=== PATIENT | male | born 1940 | race Caucasian/White ===

== ENCOUNTER 2018-01-01 13:34 | Inpatient (IN) | payer BC, MEDICARE ==
[2018-01-01 13:38] LABS: Glucose,Whole Blood 91 mg/dL (75-99)
[2018-01-01] MEDS ORDERED: SODIUM CHLORIDE 0.9% 500 ML IV STA (13:51)
--- NOTE | 2018-01-01 13:57 | ED ---
General Adult HPI - General Stated complaint: Confusion Time Seen by Provider: 01/01/18 13:35 Source: RN notes reviewed - History of Present Illness Initial comments: This is a 77-year-old male who presents emergency Department complaining of being forgetful for a period of about a half an hour. Patient states she was unable to remember any of his children's names. Patient states about a month ago he had the same kind of episode occurred he was unable to remember his ' s name for about a half an hour. Patient states currently her breathing is back to normal he can read brought his kids names and his 's name. Patient denies any recent fever chills or cough. Patient denies headache patient denies any numbness or weakness. Patient denies any visual disturbance. Patient denies any speech disturbance. Patient denies any chest pain palpitations difficulty breathing shortness of breath. Patient denies any recent fever chills or cough. Patient denies abdominal pain patient denies nausea vomiting diarrhea. Currently patient states he has no symptoms whatsoever. - Related Data Home Medications Medication Instructions Recorded Confirmed Doxycycline Hyclate [Vibramycin] 100 mg PO BID 05/10/16 01/01/18 Metoprolol Tartrate [Lopressor] 25 mg PO BID 05/10/16 01/01/18 Omeprazole 20 mg PO HS PRN 05/10/16 01/01/18 Ramipril [Altace] 10 mg PO 1300 05/10/16 01/01/18 glipiZIDE [Glucotrol XL] 10 mg PO DAILY 05/10/16 01/01/18 metFORMIN HCL [Glucophage] 500 mg PO QID 05/10/16 01/01/18 Aspirin [Adult Low Dose Aspirin EC] 81 mg PO DAILY 05/11/16 01/01/18 Rosuvastatin Calcium [Rosuvastatin 5 mg PO DAILY 01/01/18 01/01/18 Calcium] Allergies Allergy/AdvReac Type Severity Reaction Status Date / Time No Known Allergies Allergy Verified 01/01/18 13:59 Review of Systems ROS Statement: Those systems with pertinent positive or pertinent negative responses have been documented in the HPI. ROS Other: All systems not noted in ROS Statement are negative. Past Medical History Past Medical History: Cancer, Diabetes Mellitus, GERD/Reflux, Hyperlipidemia, Hypertension, Myocardial Infarction (PR), Prostate Disorder Additional Past Medical History / Comment(s): PROSTATE Last Myocardial Infarction Date:: 2000 History of Any Multi-Drug Resistant Organisms: None Reported Past Surgical History: Prostate Surgery Additional Past Surgical History / Comment(s): COLONOSCOPY Past Anesthesia/Blood Transfusion Reactions: No Reported Reaction Smoking Status: Former smoker - Past Family History Father Family Medical History: Cancer Brother(s) Family Medical History: Cancer Additional Family Medical History / Comment(s): PROSTATE CANCER General Exam - General Exam Comments Initial Comments: GENERAL: Patient is well-developed and well-nourished. Patient is nontoxic and well- hydrated and is in no acute distress. ENT: Neck is soft and supple. No significant lymphadenopathy is noted. Oropharynx is clear. Moist mucous membranes. Neck has full range of motion without eliciting any pain. EYES: The sclera were anicteric and conjunctiva were pink and moist. Extraocular movements were intact and pupils were equal round and reactive to light. Eyelids were unremarkable. PULMONARY: Unlabored respirations. Good breath sounds bilaterally. No audible rales rhonchi or wheezing was noted. CARDIOVASCULAR: There is a regular rate and rhythm without any murmurs gallops or rubs. ABDOMEN: Soft and nontender with normal bowel sounds. No palpable organomegaly was noted. There is no palpable pulsatile mass. SKIN: Skin is clear with no lesions or rashes and otherwise unremarkable. NEUROLOGIC: Patient is alert and oriented x3. Cranial nerves II through XII are grossly intact. Motor and sensory are also intact. Normal speech, volume and content. Symmetrical smile. MUSCULOSKELETAL: Normal extremities with adequate strength and full range of motion. No lower extremity swelling or edema. No calf tenderness. LYMPHATICS: No significant lymphadenopathy is noted PSYCHIATRIC: Normal psychiatric evaluation. Normal interpersonal interactions appears functionally intact in deals appropriately with others. No signs of depression. No signs of anxiety. Course Vital Signs 01/01/18 01/01/18 01/01/18 13:49 14:22 14:47 Temperature 98.6 F Pulse Rate 84 81 77 Respiratory 18 18 18 Rate Blood Pressure 163/75 155/97 140/68 O2 Sat by Pulse 100 100 100 Oximetry Medical Decision Making - Medical Decision Making EKG shows a sinus rhythm at 85 bpm [place] interval is 216 QRS is 138 QT interval 410 QTC is 487. Patient's EKG shows no ST segment elevation or depression. CT of the brain shows no acute abnormalities. Chest x-ray shows no acute normalities. Patient is been a symptomatically through his ED stay. I spoke with Dr. Mejía he agreed to admit the patient admitted the patient I consult to neurology. - Lab Data Result diagrams: 01/01/18 14:07 01/01/18 14:07 Lab Results 01/01/18 01/01/18 01/01/18 Range/Units 13:36 14:07 14:07 WBC 9.1 (3.8-10.6) k/uL RBC 4.91 (4.30-5.90) m/uL Hgb 14.5 (13.0-17.5) gm/dL Hct 40.7 (39.0-53.0) % MCV 83.1 (80.0-100.0) fL MCH 29.7 (25.0-35.0) pg MCHC 35.7 (31.0-37.0) g/dL RDW 13.2 (11.5-15.5) % Plt Count 225 (150-450) k/uL Neutrophils % 60 % Lymphocytes % 28 % Monocytes % 5 % Eosinophils % 4 % Basophils % 0 % Neutrophils # 5.4 (1.3-7.7) k/uL Lymphocytes # 2.6 (1.0-4.8) k/uL Monocytes # 0.4 (0-1.0) k/uL Eosinophils # 0.3 (0-0.7) k/uL Basophils # 0.0 (0-0.2) k/uL PT (9.0-12.0) sec INR (<1.2) APTT (22.0-30.0) sec Sodium (137-145) mmol/L Potassium (3.5-5.1) mmol/L Chloride (98-107) mmol/L Carbon Dioxide (22-30) mmol/L Anion Gap mmol/L BUN (9-20) mg/dL Creatinine (0.66-1.25) mg/dL Est GFR (CKD-EPI)AfAm (>60 ml/min/1.73 sqM) Est GFR (CKD-EPI)NonAf (>60 ml/min/1.73 sqM) Glucose (74-99) mg/dL POC Glucose (mg/dL) 91 (75-99) mg/dL POC Glu Executive Officer ID Sujatha Winslow Calcium (8.4-10.2) mg/dL Total Bilirubin (0.2-1.3) mg/dL AST (17-59) U/L ALT (21-72) U/L Alkaline Phosphatase (38-126) U/L Total Creatine Kinase 146 (55-170) U/L CK-MB (CK-2) 4.3 H* (0.0-2.4) ng/mL CK-MB (CK-2) Rel Index 2.9 Troponin I <0.012 (0.000-0.034) ng/mL Total Protein (6.3-8.2) g/dL Albumin (3.5-5.0) g/dL 01/01/18 01/01/18 Range/Units 14:07 14:07 WBC (3.8-10.6) k/uL RBC (4.30-5.90) m/uL Hgb (13.0-17.5) gm/dL Hct (39.0-53.0) % MCV (80.0-100.0) fL MCH (25.0-35.0) pg MCHC (31.0-37.0) g/dL RDW (11.5-15.5) % Plt Count (150-450) k/uL Neutrophils % % Lymphocytes % % Monocytes % % Eosinophils % % Basophils % % Neutrophils # (1.3-7.7) k/uL Lymphocytes # (1.0-4.8) k/uL Monocytes # (0-1.0) k/uL Eosinophils # (0-0.7) k/uL Basophils # (0-0.2) k/uL PT 11.5 (9.0-12.0) sec INR 1.2 H (<1.2) APTT 23.1 (22.0-30.0) sec Sodium 144 (137-145) mmol/L Potassium 4.5 (3.5-5.1) mmol/L Chloride 107 (98-107) mmol/L Carbon Dioxide 25 (22-30) mmol/L Anion Gap 12 mmol/L BUN 17 (9-20) mg/dL Creatinine 0.93 (0.66-1.25) mg/dL Est GFR (CKD-EPI)AfAm >90 (>60 ml/min/1.73 sqM) Est GFR (CKD-EPI)NonAf 79 (>60 ml/min/1.73 sqM) Glucose 92 (74-99) mg/dL POC Glucose (mg/dL) (75-99) mg/dL POC Glu Executive Officer ID Calcium 9.3 (8.4-10.2) mg/dL Total Bilirubin 0.5 (0.2-1.3) mg/dL AST 32 (17-59) U/L ALT 42 (21-72) U/L Alkaline Phosphatase 90 (38-126) U/L Total Creatine Kinase (55-170) U/L CK-MB (CK-2) (0.0-2.4) ng/mL CK-MB (CK-2) Rel Index Troponin I (0.000-0.034) ng/mL Total Protein 6.2 L (6.3-8.2) g/dL Albumin 3.8 (3.5-5.0) g/dL Disposition Clinical Impression: TIA (transient ischemic attack) Disposition: ADMITTED IP TO THIS HOSP Referrals: Arturo Booth DO [Primary Care Provider] - 1-2 days Time of Disposition: 15:07
[2018-01-01 14:22] LABS: Basophils % (A) 0 %; Eosinophils # (A) 0.3 k/uL (0-0.7); Eosinophils % (A) 4 %; HCT 40.7 % (39.0-53.0); HGB 14.5 gm/dL (13.0-17.5); Lymphocytes # (A) 2.6 k/uL (1.0-4.8); Lymphocytes % (A) 28 %; MCH 29.7 pg (25.0-35.0); MCHC 35.7 g/dL (31.0-37.0); MCV 83.1 fL (80.0-100.0); Mean Platelet Volume 7.4; Monocytes # (A) 0.4 k/uL (0-1.0); Monocytes % (A) 5 %; Neutrophils # (A) 5.4 k/uL (1.3-7.7); Neutrophils % (A) 60 %; Platelet Count 225 k/uL (150-450); RBC 4.91 m/uL (4.30-5.90); RDW 13.2 % (11.5-15.5); WBC 9.1 k/uL (3.8-10.6)
[2018-01-01 14:25] LABS: ALT 42 U/L (21-72); AST 32 U/L (17-59); Albumin 3.8 g/dL (3.5-5.0); Alkaline Phosphatase 90 U/L (38-126); Anion Gap 12 mmol/L; Blood Urea Nitrogen 17 mg/dL (9-20); Calcium 9.3 mg/dL (8.4-10.2); Carbon Dioxide 25 mmol/L (22-30); Chloride 107 mmol/L (98-107); Glucose 92 mg/dL (74-99); Potassium 4.5 mmol/L (3.5-5.1); Sodium 144 mmol/L (137-145); Total Bilirubin 0.5 mg/dL (0.2-1.3); Total Protein 6.2 g/dL (6.3-8.2)
[2018-01-01 14:27] LABS: INR 1.2 (<1.2); Partial Thromboplastin Time 23.1 sec (22.0-30.0); Prothrombin Time 11.5 sec (9.0-12.0)
[2018-01-01 14:35] LABS: Creatine Kinase 146 U/L (55-170)
--- NOTE | 2018-01-01 14:47 | CT ---
EXAMINATION TYPE: CT brain wo con for TPA DATE OF EXAM: 01/01/2018 COMPARISON: NONE INDICATION: Multiple episodes of memory loss and confusion DLP: 1296 mGycm, Automated exposure control for dose reduction was used. CONTRAST: None CT of the brain is performed utilizing 3 mm thick sections through the posterior fossa and 3 mm thick sections through the remaining calvarium. Study is performed within 24 hours of arrival to the hosp [facility]. No abnormal hyperdensity is present to suggest an acute intracranial hemorrhage. No mass lesion is evident. No acute infarcts are evident. Mild periventricular white matter hypodensity is present, likely on th e basis of chronic white matter ischemic changes. Ventricles and sulci are appropriate for the patient age. Paranasal sinuses and mastoid air cells within the [id number] are clear. IMPRESSIONS: 1. No acute intracranial process. 2. Mild chronic appearing white matter ischemic changes.
[2018-01-01 14:48] LABS: Troponin I <0.012 ng/mL (0.000-0.034)
--- NOTE | 2018-01-01 14:48 | XR ---
EXAMINATION TYPE: XR chest 2V DATE OF EXAM: 01/01/2018 COMPARISON: NONE INDICATION: Altered mental status TECHNIQUE: Frontal and lateral views of the chest are obtained. FINDINGS: The heart size is normal. The pulmonary vasculature is normal. The lungs are clear. IMPRESSION: 1. No acute pulmonary process.
[2018-01-01 14:57] LABS: Creatine Kinase MB 4.3 ng/mL (0.0-2.4)
[2018-01-01] MEDS ORDERED: ASPIRIN 325 MG TAB PO STA (15:07)
[2018-01-01 18:13] LABS: Glucose,Whole Blood 99 mg/dL (75-99)
[2018-01-01 21:16] LABS: Glucose,Whole Blood 79 mg/dL (75-99)
[2018-01-01] MEDS: INSULIN ASPART 100 UNIT/ML 1 ML 10 ML VIAL SQ SCH (21:40)
[2018-01-01] MEDS ORDERED: PANTOPRAZOLE 40 MG TABLET PO PRN (23:39)
--- NOTE | 2018-01-01 23:48 | P.HPIM ---
History of Present Illness H&P Date: 01/01/18 Chief Complaint: Loss of memory Patient is a 77-year-old male with a known history of hypertension, hyperlipidemia, diabetes type 2 and history of ME and no PCI came to ER with the complaints of being forgetful for a period of about 20-30 minutes. Patient was unable to work his children's names. Patient states about a month ago he had the same kind of episode occurred he was unable to remember his 's name for about a half an hour. Patient states currently her breathing is back to normal he can read brought his kids names and his 's name. Patient was previously seen by Dr. Glover. Patient says that he had 2-D echocardiogram and ultrasound of the neck was done previously about near ago. Patient denies any recent fever chills or cough. Patient denies headache patient denies any numbness or weakness. Patient denies any visual disturbance. Patient denies any speech disturbance. Patient denies any chest pain palpitations difficulty breathing shortness of breath. Patient denies any recent fever chills or cough. Patient denies abdominal pain patient denies nausea vomiting diarrhea. Currently patient states he has no symptoms. Patient is originally from [place] and is currently in [place]. Apparently patient has been cleaning up garage and has been working continuously. Patient says that at one time she forgot how to start his tractor. CT head showed no acute process Chest x-ray showed no acute cardiopulmonary process EKG showed sinus rhythm with first degree AV block Review of Systems Constitutional: Patient denies any fever or chills . No generalized weakness or weight loss. Abdomen: Patient denied nausea vomiting and diarrhea and abdominal pain. Cardiovascular: Patient denies any chest pain or short of breath no palpitations. Respiratory: patient denied any cough is from production. No shortness of breath Neurologic: Patient denied any numbness or tingling headache. Musculoskeletal: Patient denies any complaints of joint swelling or deformity. Skin: Negative Psychiatric: Negative Endocrine: No heat or cold intolerance. No recent weight gain. Genitourinary: No dysuria or hematuria. All other 14 point ROS negative except the above Past Medical History Past Medical History: Cancer, Diabetes Mellitus, GERD/Reflux, Hyperlipidemia, Hypertension, Myocardial Infarction (ME), Prostate Disorder Additional Past Medical History / Comment(s): PROSTATE Last Myocardial Infarction Date:: 2000 History of Any Multi-Drug Resistant Organisms: None Reported Past Surgical History: Prostate Surgery Additional Past Surgical History / Comment(s): COLONOSCOPY Past Anesthesia/Blood Transfusion Reactions: No Reported Reaction Smoking Status: Former smoker - Past Family History Father Family Medical History: Cancer Brother(s) Family Medical History: Cancer Additional Family Medical History / Comment(s): PROSTATE CANCER Medications and Allergies Home Medications Medication Instructions Recorded Confirmed Type Doxycycline Hyclate [Vibramycin] 100 mg PO BID 05/10/16 01/01/18 History Omeprazole 20 mg PO HS PRN 05/10/16 01/01/18 History Ramipril [Altace] 10 mg PO DAILY 05/10/16 01/01/18 History glipiZIDE [Glucotrol XL] 10 mg PO DAILY 05/10/16 01/01/18 History metFORMIN HCL [Glucophage] 500 mg PO TID 05/10/16 01/01/18 History Aspirin [Adult Low Dose Aspirin EC] 81 mg PO DAILY 05/11/16 01/01/18 History Metoprolol Tartrate [Lopressor] 25 mg PO BID 01/01/18 01/01/18 History Rosuvastatin Calcium [Rosuvastatin 5 mg PO DAILY@1300 01/01/18 01/01/18 History Calcium] Allergies Allergy/AdvReac Type Severity Reaction Status Date / Time No Known Allergies Allergy Verified 01/01/18 15:36 Physical Exam Vitals: Vital Signs Temp Pulse Pulse Resp BP BP Pulse Ox 01/01/18 16:07 67 18 166/75 100 01/01/18 15:07 97.9 F 67 18 180/71 100 01/01/18 14:40 77 18 140/68 100 01/01/18 14:22 81 18 155/97 100 01/01/18 13:49 98.6 F 84 18 163/75 100 Intake and Output 01/01/18 01/01/18 01/01/18 06:59 14:59 22:59 Other: Weight 95.254 kg PHYSICAL EXAMINATION: Patient is lying in the bed comfortably, no acute distress, awake alert and oriented.. HEENT: Normocephalic. Neck is supple. Pupils reactive. Nostrils clear. Oral cavity is moist. Ears reveal no drainage. Neck reveals no JVD, carotid bruits, or thyromegaly. CHEST EXAMINATION: Trachea is central. Symmetrical expansion. Lung mccann clear to auscultation and percussion. CARDIAC: Normal S1, S2 with no gallops. No murmurs ABDOMEN: Soft. Bowel sounds normal. No organomegaly. No abdominal bruits. Extremities: reveal no edema. No clubbing or cyanosis Neurologically awake, alert, oriented x3 with well-coordinated movements. No focal deficits noted Skin: No rash or skin lesions. Psychiatric: Coperative. Nonsuicidal Musculoskeletal: No joint swelling or deformity. Normal range of motion. Results CBC & Chem 7: 01/01/18 14:07 01/01/18 14:07 Labs: Abnormal Lab Results - Last 24 Hours (Table) 01/01/18 01/01/18 01/01/18 Range/Units 14: 14: 14: INR 1.2 H (<1.2) CK-MB (CK-2) 4.3 H* (0.0-2.4) ng/mL Total Protein 6.2 L (6.3-8.2) g/dL Thrombosis Risk Factor Assmnt - DVT/VTE Prophylaxis DVT/VTE Prophylaxis: Pharmacologic Prophylaxis ordered Assessment and Plan Assessment: Transient amnesia. Possible TIA. CT head negative. Rule out seizures. Resolved now Hypertension uncontrolled Hyperlipidemia Previous history of ME. No PCI Diabetes type 2 [id number] History of prostate cancer status post resection Colonoscopy with benign polyp removal Moderate diverticulosis DVT prophylaxis Plan: Patient will be continued on telemetry monitoring. Neurology was consulted. Continue with aspirin and will restart on his home blood pressure medications and adjust as needed. 2-D echocardiogram and carotid duplex was ordered. Insulin sliding scale and follow closely. Further recommendations based on the clinical course. Time with Patient: Greater than 30
[2018-01-02] MEDS: HEPARIN SODIUM,PORCINE 5,000 UNIT/ML 1 ML VIAL SQ SCH ×3 (00:07→16:26)
[2018-01-02 03:17] LABS: Cholesterol 102 mg/dL (<200); HDL Cholesterol 28 mg/dL (40-60); LDL Cholesterol,Calculated 34 mg/dL (0-99); Triglycerides 201 mg/dL (<150)
[2018-01-02] MEDS: INSULIN ASPART 100 UNIT/ML 1 ML 10 ML VIAL SQ SCH ×2 (06:25→12:06)
[2018-01-02 06:26] LABS: Glucose,Whole Blood 119 mg/dL (75-99)
[2018-01-02] MEDS ORDERED: glipiZIDE 5 MG TAB PO SCH (07:30)
[2018-01-02 08:05] VITALS: RESP 16
[2018-01-02] MEDS: metFORMIN 500 MG TAB PO SCH ×2 (08:41→16:26)
[2018-01-02] MEDS ORDERED: METOPROLOL TARTRATE 25 MG TAB PO SCH (09:00)
[2018-01-02] MEDS ORDERED: LISINOPRIL 20 MG TAB PO SCH (09:00)
[2018-01-02] MEDS ORDERED: ASPIRIN 325 MG TAB PO SCH (09:00)
--- NOTE | 2018-01-02 09:03 | P.CNNES ---
History of Present Illness Consult date: 01/02/18 Reason for Consult: Patient with episode of memory loss and TIA. History of Present Illness: This patient is a 77-year-old right-handed white male who apparently just 2 days prior had returned from his stay in [place] with his . Normally he spends winter months in [place]. He had just returned from [place] 2 days ago and was outside working in his yard cleaning up some lawn and trim work. He is very active and apparently did not have any major problems until he went indoors for a short break. When inside he noticed that he was having difficulty remembering his 's name. Apparently a neighbor came over and he still had some degree of confusion and was unable to recollect the neighbor's name. He is known this neighbor for years. His noticed that he was having episodes of confusion which seem to wax and wane. She has some if he was having any chest pain or weakness. He denied both of these symptoms. He went out and cleaned his garage at the time and when he came back he continued to have episodes of worsening confusion. Apparently for 30 minutes he was totally confused and unaware of recent events. Apparently the patient states a year ago he had a similar event for which she was evaluated and was seen by Dr. Subramanian from cardiology. He was diagnosed as possibly of having had a small stroke at the time. Patient states he has been active and has not had any other recent problems even while in [place]. 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 Due to this 30 minute episode of confusion he was brought into the emergency room and the [facility] for further evaluation. He was seen in the ER by Dr. Moser. He was sent for a computed tomography scan of the brain which revealed no acute intracranial process. There was chronic white matter ischemic changes noted. He was admitted hospital for further evaluation. Patient states his entire episode of confusion and amnesia lasted only about 30 minutes. He is now back to his baseline according to his as well this morning. She was at bedside and states that she feels he is recovered nicely but is unaware of this episode that occurred yesterday as to what may have caused this finding. The patient has a history of previous myocardial infarction. He also has underlying diabetes2 and was concerned may be his blood sugars were either too high or too low at the time. EMS was called to the home and apparently when they arrived his blood sugars were within normal range. The patient states he is feeling much better this morning and has had no further recurrence of the confusion. His clinical history and his exam findings at this time suggest possibility of transient global amnesia. We've explained to him this is a form of TIA. He has been taking aspirin daily and should continue on the same for secondary stroke prevention. We have recommended a complete stroke evaluation for the patient. His overall prognosis remains fair. He is now been admitted and neurology has been consulted for further evaluation and recommendations. Review of Systems Constitutional: Denies chills, Denies fever Eyes: denies blurred vision, denies pain Ears, nose, mouth and throat: Denies headache, Denies sore throat Cardiovascular: Denies chest pain, Denies shortness of breath Respiratory: Denies cough Gastrointestinal: Denies abdominal pain, Denies diarrhea, Denies nausea, Denies vomiting Musculoskeletal: Denies myalgias Integumentary: Denies pruritus, Denies rash Neurological: Reports aphasia, Reports change in speech, Reports confusion, Denies numbness, Denies weakness Psychiatric: Denies anxiety, Denies depression Endocrine: Denies fatigue, Denies weight change Past Medical History Past Medical History: Cancer, Diabetes Mellitus, GERD/Reflux, Hyperlipidemia, Hypertension, Myocardial Infarction ([place]), Prostate Disorder Additional Past Medical History / Comment(s): PROSTATE Last Myocardial Infarction Date:: 2000 History of Any Multi-Drug Resistant Organisms: None Reported Past Surgical History: Prostate Surgery Additional Past Surgical History / Comment(s): COLONOSCOPY Past Anesthesia/Blood Transfusion Reactions: No Reported Reaction Smoking Status: Former smoker - Past Family History Father Family Medical History: Cancer Brother(s) Family Medical History: Cancer Additional Family Medical History / Comment(s): PROSTATE CANCER Medications and Allergies Home Medications Medication Instructions Recorded Confirmed Type Doxycycline Hyclate [Vibramycin] 100 mg PO BID 05/10/16 01/01/18 History Omeprazole 20 mg PO HS PRN 05/10/16 01/01/18 History Ramipril [Altace] 10 mg PO DAILY 05/10/16 01/01/18 History glipiZIDE [Glucotrol XL] 10 mg PO DAILY 05/10/16 01/01/18 History metFORMIN HCL [Glucophage] 500 mg PO TID 05/10/16 01/01/18 History Aspirin [Adult Low Dose Aspirin EC] 81 mg PO DAILY 05/11/16 01/01/18 History Metoprolol Tartrate [Lopressor] 25 mg PO BID 01/01/18 01/01/18 History Rosuvastatin Calcium [Rosuvastatin 5 mg PO DAILY@1300 01/01/18 01/01/18 History Calcium] Allergies Allergy/AdvReac Type Severity Reaction Status Date / Time No Known Allergies Allergy Verified 01/01/18 15:36 Physical Examination - Vital Signs Vital Signs: Vital Signs Temp Pulse Pulse Resp BP BP Pulse Ox 01/02/18 04:00 97.3 F L 70 18 156/74 96 01/02/18 00:00 97.1 F L 80 16 139/66 98 01/01/18 20:00 97.4 F L 66 19 149/67 97 01/01/18 18:15 97.3 F L 72 20 194/81 100 01/01/18 17:07 98 F 71 18 142/66 100 01/01/18 16:58 98 F 66 16 162/73 100 01/01/18 16:07 67 18 166/75 100 01/01/18 15:07 97.9 F 67 18 180/71 100 01/01/18 14:40 77 18 140/68 100 01/01/18 14:22 81 18 155/97 100 01/01/18 13:49 98.6 F 84 18 163/75 100 Intake and Output 01/01/18 01/02/18 01/02/18 22:59 06:59 14:59 Intake Total 240 300 Balance 240 300 Intake: Oral 240 300 Other: Voiding Method Toilet Toilet Urinal Urinal # Voids 1 1 Weight 94 kg - Constitutional General appearance: average body habitus, cooperative - EENT EENT: PERRL, mucous membranes moist - Respiratory Respiratory: lungs clear, normal breath sounds - Cardiovascular Cardiovascular: regular rate, normal S1, normal S2 Extremities: no peripheral edema bilaterally - Gastrointestinal Gastrointestinal: normoactive bowel sounds - Integumentary Integumentary: normal - Neurologic Cranial nerve examination: PERRL, EOMI, VFF, V1/V2/V3 grossly intact, face symmetric, intact gag reflex, intact corneal reflex, normal palatal elevation Speech examination: intact Sensorimotor examination: intact Motor examination - right side: 4/5: biceps, triceps, wrist flexion, wrist extension, relationship assoc, hip flexors, knee extensors, dorsiflexion, toe extension (EHL) , plantarflexion Motor examination - left side: 4/5: biceps, triceps, wrist flexion, wrist extension, relationship assoc, hip flexors, knee extensors, dorsiflexion, toe extension (EHL) , plantarflexion Detailed sensory examination: intact Reflex and gait examination: intact Reflexes: 1+: ankle, bicep, knee, tricep - Musculoskeletal Musculoskeletal: no pain - Psychiatric Psychiatric: mood/affect appropriate, cooperative Results - Laboratory Findings CBC and BMP: 01/01/18 14:07 01/01/18 14:07 Abnormal Lab Findings: Abnormal Labs 01/01/18 01/01/18 01/01/18 14:07 14:07 14:07 INR 1.2 H POC Glucose (mg/dL) CK-MB (CK-2) 4.3 H* Total Protein 6.2 L Triglycerides HDL Cholesterol 01/01/18 01/02/18 14:07 06:25 INR POC Glucose (mg/dL) 119 H CK-MB (CK-2) Total Protein Triglycerides 201 H HDL Cholesterol 28 L Assessment and Plan (1) Transient global amnesia Current Visit: Yes Status: Acute Code(s): G45.4 - TRANSIENT GLOBAL AMNESIA SNOMED Code(s): 477093739 (2) Diabetes mellitus Current Visit: Yes Status: Acute Code(s): E11.9 - TYPE 2 DIABETES MELLITUS WITHOUT COMPLICATIONS SNOMED Code(s): 75697227 (3) Hypertension Current Visit: Yes Status: Acute Code(s): I10 - ESSENTIAL (PRIMARY) HYPERTENSION SNOMED Code(s): 57127966 (4) TIA (transient ischemic attack) Current Visit: Yes Status: Acute Code(s): G45.9 - TRANSIENT CEREBRAL ISCHEMIC ATTACK, UNSPECIFIED SNOMED Code(s): 846541046 Plan: This patient is a 77-year-old male who was admitted hospital with episode of acute onset of confusion and amnesia. The episode occurred yesterday at home after he was out cleaning up his garage and working outdoors. The entire episode lasted about 30 minutes in duration. He was brought into the emergency room at [facility] for further evaluation. He underwent a computed tomography scan of the brain which failed to reveal any evidence of acute stroke or hemorrhage. He has subsequently been admitted to hospital. His clinical history and exam findings at this time suggest he suffered an episode of transient global amnesia. This is a form of TIA and we've recommended he undergo a complete stroke evaluation. Doubt that he had a seizure but we will obtain routine EEG for further evaluation. We will also obtain an MRI of the brain to rule out acute ischemic event. Patient should continue on aspirin therapy for secondary stroke prevention. Case was discussed at length with the patient and his at bedside. All of their questions were answered. They are aware of his current neurological findings and agree with our current recommendations. Overall prognosis at this time remains guarded. Time with Patient: Greater than 30
--- NOTE | 2018-01-02 10:55 | US ---
EXAMINATION TYPE: US carotid duplex BILAT DATE OF EXAM: 01/02/2018 COMPARISON: NONE CLINICAL HISTORY: TIA. TIA yesterday, HTN controlled with meds. Admitted for neuro deficits or memory loss and confusion yesterday. EXAM MEASUREMENTS: RIGHT: Peak Systolic Velocity (PSV) cm/sec ----- Right CCA: 64.7 ----- Right ICA: 66.2 ----- Right ECA: 139.7 ICA/CCA ratio: 1.0 RIGHT: End Diastole cm/sec ----- Right CCA: 10.9 ----- Right ICA: 13.9 ----- Right ECA: 5.7 LEFT: Peak Systolic Velocity (PSV) cm/sec ----- Left CCA: 62.7 ----- Left ICA: 83.4 ----- Left ECA: 101.6 ICA/CCA ratio: 1.3 LEFT: End Diastole cm/sec ----- Left CCA: 13.0 ----- Left ICA: 23.0 ----- Left ECA: 4.7 VERTEBRALS (direction of flow): Right Vertebral: Antegrade Left Vertebral: Antegrade Rhythm: Normal Grayscale images show mild to moderate eccentric hyperechoic plaque at right carotid bulb and slightl y more regular mild hyperechoic plaque at left carotid bulb. Velocity measurements and ratios in visu alized portion of both internal carotid arteries remains within normal limits. IMPRESSION: Mild to moderate atherosclerotic change bilaterally without hemodynamically significant s tenosis seen in either internal carotid artery.
[2018-01-02 11:23] LABS: Hemoglobin A1C 6.4 % (4.0-6.0)
--- NOTE | 2018-01-02 11:59 | ECHOF ---
Referral Reason:TIA MEASUREMENTS -------- HEIGHT: 152.4 cm WEIGHT: 93.9 kg BP: 156/74 RVIDd: 2.3 cm (< 3.3) IVSd: 1.1 cm (0.6 - 1.1) LVIDd: 4.2 cm (3.9 - 5.3) LVPWd: 1.3 cm (0.6 - 1.1) IVSs: 1.6 cm LVIDs: 3.4 cm LVPWs: 1.5 cm LA Diam: 3.3 cm (2.7 - 3.8) LAESV Index (A-L): 37.21 ml/m Ao Diam: 2.9 cm (2.0 - 3.7) AV Cusp: 1.9 cm (1.5 - 2.6) LA Diam: 3.4 cm (2.7 - 3.8) MV EXCURSION: 16.312 mm (> 18.000) MV EF SLOPE: 77 mm/s (70 - 150) EPSS: 1.1 cm MV E Osmel: 0.49 m/s MV DecT: 240 ms MV A Osmel: 0.92 m/s MV E/A Ratio: 0.53 RAP: 5.00 mmHg RVSP: 18.64 mmHg FINDINGS -------- Sinus rhythm. This was a technically adequate study. The left ventricular size is normal. There is borderline concentric left ventricular hypertrophy. Overall left ventricular systolic function is normal with, an EF between 60 - 65 %. The right ventricle is normal in size. LA is moderately dilated 34-39 ml/m2 The right atrial size is normal. The aortic valve is trileaflet, and appears structurally normal. No aortic stenosis or regurgitation. Mild mitral annular calcification present. Mild mitral regurgitation is present. Mild tricuspid regurgitation present. There is no evidence of pulmonary hypertension. The right v entricular systolic pressure, as measured by Doppler, is 18.64mmHg. There is no pulmonic regurgitation present. The aortic root size is normal. There is no pericardial effusion. CONCLUSIONS -------- 1. The left ventricular size is normal. 2. There is borderline concentric left ventricular hypertrophy. 3. Overall left ventricular systolic function is normal with, an EF between 60 - 65 %. 4. LA is moderately dilated 34-39 ml/m2 5. The aortic valve is trileaflet, and appears structurally normal. No aortic stenosis or regurgitati on. 6. Mild mitral annular calcification present. 7. Mild mitral regurgitation is present. 8. Mild tricuspid regurgitation present. 9. There is no evidence of pulmonary hypertension. 10. The right ventricular systolic pressure, as measured by Doppler, is 18.64mmHg. 11. There is no pulmonic regurgitation present. 12. The aortic root size is normal. 13. There is no pericardial effusion. LEATHER CLEANER: Summer Valente RDCS
--- NOTE | 2018-01-02 12:01 | MR ---
EXAMINATION TYPE: MR brain wo con DATE OF EXAM: 01/02/2018 COMPARISON: CT brain 01/01/2018 HISTORY: 77-year-old male with acute TIA and memory loss TECHNIQUE: Multiplanar, multisequence images of the brain and brainstem were acquired without IV con trast. Diffusion weighted imaging is performed. The patient was claustrophobic and elected to prematu rely terminate the exam. FINDINGS: No evidence for acute infarction, hemorrhage, mass, mass effect, midline shift, herniation, effacemen t of basal cisterns, or extra-axial fluid collection. There is moderate generalized supratentorial volume loss. No hydrocephalus. Major intracranial flow voids are intact. Axial FLAIR sequence was not performed. The patient prematurely terminated the exam due to claustroph obia. Old lacunar infarcts versus prominent perivascular spaces in the right greater than left basal gangli a. Suggestion of moderate patchy white matter bright signal changes in both cerebral hemispheres. Escobar ited characterization without axial FLAIR sequence. Midline structures demonstrate normal morphology. The craniocervical junction is normal. The globes are intact. Moderate mucosal thickening ethmoid air cells and frontal sinuses as well as t he sphenoid sinuses. Mild mucosal thickening maxillary sinuses with a mucosal retention cyst in the l eft maxillary sinus. Some fluid signal in the left mastoid air cells. IMPRESSION: 1. Diffusion sequence shows no evidence for acute infarct/ischemia. 2. Moderate cerebral atrophy and changes of chronic small vessel ischemic disease. Exam limitations a s the patient prematurely terminated the exam due to claustrophobia. 3. Moderate chronic samayoa sinus disease. 4. There is some trapped fluid in the left mastoid air cells. Correlate for any mastoid pain to exclu de mastoiditis.
[2018-01-02 12:04] LABS: Glucose,Whole Blood 115 mg/dL (75-99)
[2018-01-02] MEDS ORDERED: ATORVASTATIN 10 MG TAB PO SCH (13:00)
[2018-01-02 15:41] VITALS: TEMP 96.1
[2018-01-02 15:45] VITALS: BP 154/74; PULSE 83
[2018-01-02 16:56] LABS: Glucose,Whole Blood 161 mg/dL (75-99)
--- NOTE | 2018-01-02 18:41 | EEG ---
ELECTROENCEPHALOGRAM REPORT DATE OF EE01/02/2018. REFERRING PHYSICIAN: Dr. Mejía. ELECTROENCEPHALOGRAPHIC EXAMINATION REPORT: INDICATION FOR EXAMINATION: This patient is a 77-year-old male being evaluated for episode of transient global amnesia. The patient with also short episode of memory loss. AGE: [age]. EEG FINDINGS: A routine 21 channel awake digital EEG recording was accomplished utilizing the 10-20 international system with bipolar and referential montages. The background activity in the most alert resting state consists of a low to medium amplitude, fairly well- developed and well sustained 8 Hz activity over the posterior head regions. This posterior rhythm attenuates to eye opening. There is a small amount of low amplitude 18-20 Hz beta activity seen maximally over the anterior head regions. Muscle and movement artifact was observed on several occasions throughout the tracing. Hyperventilation was not performed. Photic stimulation at flash frequencies of 2-30 Hz produced a good symmetrical occipital driving response. No epileptiform discharges were seen. IMPRESSION: This EEG is within normal limits for the patient's age. The EEG failed to reveal any focal, lateralized, or epileptiform abnormalities. Clinical correlation is recommended. MMODL / IJN: [id number] /
== END 2018-01-02 17:10 | disposition home or self-care (01) | DRG 72 ==
LOC: EC 13:34 → 6SEL 15:07
PROVIDERS: ADMIT Internal Medicine; ATTEND Internal Medicine
DX: G45.4 Transient global amnesia (principal); E11.9 Type 2 diabetes mellitus without complications; E78.5 Hyperlipidemia, unspecified; I10 Essential (primary) hypertension; I25.2 Old myocardial infarction; I44.0 Atrioventricular block, first degree; K21.9 Gastro-esophageal reflux disease without esophagitis; K57.90 Diverticulosis of intestine, part unspecified, without perforation or abscess without bleeding; Z79.82 Long term (current) use of aspirin; Z80.42 Family history of malignant neoplasm of prostate; Z85.46 Personal history of malignant neoplasm of prostate; Z87.891 Personal history of nicotine dependence; Z79.899 Other long term (current) drug therapy; Z79.84 Long term (current) use of oral hypoglycemic drugs
CPT/HCPCS: 36415; 70450; 70551; 71046; 80053; 80061; 82550; 82553; 83036; 84484; 85025; 85610; 85730; 93005; 93306; 93880; 95819; 96360; 99285

== ENCOUNTER 2018-01-19 21:51 | Inpatient (IN) | payer MEDICARE ==
[2018-01-19] MEDS ORDERED: ACETAMINOPHEN TAB 500 MG TAB PO STA ×2 (22:11→22:36)
[2018-01-19] MEDS ORDERED: SODIUM CHLORIDE 0.9% 1,000 ML IV STA ×2 (22:11)
[2018-01-19] MEDS ORDERED: RX INFO: IV CONTRAST WAS GIVEN 1 EACH MISC MISCELLANE PRN (22:13)
[2018-01-19] MEDS ORDERED: cefTRIAXone IN SWFI 2,000 MG/20 ML SYRINGE IVP STA (22:16)
[2018-01-19 22:42] LABS: Basophils % (A) 0 %; Eosinophils # (A) 0.1 k/uL (0-0.7); Eosinophils % (A) 1 %; HCT 43.7 % (39.0-53.0); HGB 14.7 gm/dL (13.0-17.5); Lymphocytes # (A) 1.3 k/uL (1.0-4.8); Lymphocytes % (A) 8 %; MCH 28.5 pg (25.0-35.0); MCHC 33.6 g/dL (31.0-37.0); MCV 84.7 fL (80.0-100.0); Mean Platelet Volume 8.3; Monocytes # (A) 1.2 k/uL (0-1.0); Monocytes % (A) 8 %; Neutrophils # (A) 13.1 k/uL (1.3-7.7); Neutrophils % (A) 82 %; Platelet Count 218 k/uL (150-450); RBC 5.16 m/uL (4.30-5.90); RDW 13.8 % (11.5-15.5)
[2018-01-19 22:53] LABS: Anion Gap 14 mmol/L; C Reactive Protein 23.6 mg/L (<10.0); Calcium 9.6 mg/dL (8.4-10.2); Carbon Dioxide 20 mmol/L (22-30); Chloride 108 mmol/L (98-107); Glucose 156 mg/dL (74-99); Sodium 142 mmol/L (137-145); Total Bilirubin 0.8 mg/dL (0.2-1.3)
[2018-01-19 22:54] LABS: ALT 29 U/L (21-72); AST 28 U/L (17-59); Alkaline Phosphatase 76 U/L (38-126); Blood Urea Nitrogen 23 mg/dL (9-20); Potassium 4.6 mmol/L (3.5-5.1); Total Protein 6.6 g/dL (6.3-8.2)
--- NOTE | 2018-01-19 23:00 | XR ---
EXAMINATION TYPE: XR chest 2V DATE OF EXAM: 01/19/2018 COMPARISON: 01/01/2018 HISTORY: Fever and weakness TECHNIQUE: Frontal and lateral views of the chest are obtained. FINDINGS: There is no heart failure nor confluent pneumonic infiltrate. There is spurring in the tho racic spine. Heart size is normal. There are chest leads. Costophrenic angles are clear. IMPRESSION: No active cardiopulmonary disease. No change.
[2018-01-20 00:04] LABS: Appearance,Urine Cloudy (Clear); Bacteria,Urine Rare /hpf; Bilirubin,Urine Negative (Negative); Blood,Urine Large (Negative); Color,Urine Yellow; Glucose,Urine (UA) Trace (Negative); Hyaline Casts,Urine 1 /lpf (0-2); Ketones,Urine Negative (Negative); Leukocyte Esterase,Urine Large (Negative); Mucus,Urine Rare /hpf; Nitrite,Urine Positive (Negative); Protein,Urine 1+ (Negative); RBC,Urine 177 /hpf (0-5); Specific Gravity,Urine 1.024 (1.001-1.035); Urobilinogen,Urine <2.0 mg/dL (<2.0); WBC,Urine 120 /hpf (0-5)
--- NOTE | 2018-01-20 00:17 | CT ---
EXAMINATION TYPE: CT abdomen pelvis w con DATE OF EXAM: 01/19/2018 COMPARISON: NONE HISTORY: Fever;nausea CT DLP: 1420.80 mGycm Automated exposure control for dose reduction was used. TECHNIQUE: Helical acquisition of images was performed from the lung bases through the pelvis. CONTRAST: Performed without Oral Contrast and with IV Contrast, patient injected with 100 mL of Isovue 300. FINDINGS: There is mild interstitial density at the posterior lung bases. There is no pleural effusion. There i s no pericardial effusion. There is small hiatal hernia. Liver appears normal. There are clips from cholecystectomy. The spleen appears normal. Pancreas appea rs normal. There is no adrenal mass. Kidneys show satisfactory contrast opacification. There is no hydronephrosi s. The ureters are not dilated. There is no retroperitoneal adenopathy. There is mild bilateral perin ephric edema. I see no renal calculus. There are numerous diverticula in the sigmoid colon. I see no sign of diverticulitis. Bladder distend s smoothly. There is no pelvic mass. Appendix appears normal. There is no evidence of bowel obstructi on. There is no sign of free air. There is no ascites. There is no evidence of bony destructive proce ss. IMPRESSION: THERE IS SOME MILD BILATERAL PERINEPHRIC FAT STRANDING OF UNCERTAIN SIGNIFICANCE. SEE NO EVIDENCE OF RENAL MASS OR OBSTRUCTION. NO SIGN OF PYELONEPHRITIS. SIGMOID MODERATE DIVERTICULOSIS WITHOUT SIGN OF DIVERTICULITIS.
--- NOTE | 2018-01-20 00:37 | ED ---
General Adult HPI - General Chief complaint: Fever Stated complaint: Fever Time Seen by Provider: 01/19/18 21:55 Source: patient Mode of arrival: EMS Limitations: no limitations - History of Present Illness Initial comments: 77 years old male presents with the fever or chills tachycardia, but he feels weak and does not feel right also complaining about the pain in the left lower quadrant area there was no pain when he woke up today pain started around 2 PM. He denies any headaches no neck pain no neck stiffness no chest pain or shortness of breath doesn't abdominal pain no frequency urgency dysuria no symptoms of TIA or CVA - Related Data Home Medications Medication Instructions Recorded Confirmed Doxycycline Hyclate [Vibramycin] 100 mg PO BID 05/10/16 01/19/18 Omeprazole 20 mg PO HS PRN 05/10/16 01/19/18 Ramipril [Altace] 10 mg PO DAILY 05/10/16 01/19/18 glipiZIDE [Glucotrol XL] 10 mg PO DAILY 05/10/16 01/19/18 metFORMIN HCL [Glucophage] 500 mg PO QID 05/10/16 01/19/18 Aspirin [Adult Low Dose Aspirin EC] 81 mg PO DAILY 05/11/16 01/19/18 Metoprolol Tartrate [Lopressor] 25 mg PO BID 01/01/18 01/19/18 Rosuvastatin Calcium 5 mg PO DAILY@1300 01/01/18 01/19/18 Allergies Allergy/AdvReac Type Severity Reaction Status Date / Time No Known Allergies Allergy Verified 01/19/18 22:13 Review of Systems ROS Statement: Those systems with pertinent positive or pertinent negative responses have been documented in the HPI. ROS Other: All systems not noted in ROS Statement are negative. Past Medical History Past Medical History: Cancer, Diabetes Mellitus, GERD/Reflux, Hyperlipidemia, Hypertension, Myocardial Infarction ([place]), Prostate Disorder Additional Past Medical History / Comment(s): PROSTATE Last Myocardial Infarction Date:: 2000 History of Any Multi-Drug Resistant Organisms: None Reported Past Surgical History: Prostate Surgery Additional Past Surgical History / Comment(s): COLONOSCOPY Past Anesthesia/Blood Transfusion Reactions: No Reported Reaction Past Psychological History: No Psychological Hx Reported Smoking Status: Former smoker Past Alcohol Use History: Occasional Past Drug Use History: None Reported - Past Family History Father Family Medical History: Cancer Brother(s) Family Medical History: Cancer Additional Family Medical History / Comment(s): PROSTATE CANCER General Exam - General Exam Comments Initial Comments: General: The patient is awake and alert, in no distress, and does not appear acutely ill. Skin: Skin is warm and dry and no rashes or lesions are noted. Eye: Pupils are equal, round and reactive to light, extra-ocular movements are intact; there is normal conjunctiva bilaterally. Ears, nose, mouth and throat: There are moist mucous membranes and no oral lesions. Neck: The neck is supple, there is no tenderness , no signs of meningitis Cardiovascular: There is a regular rate and rhythm. No murmur, rub or gallop is appreciated. Noticed tachycardia Respiratory: To auscultation bilateral, no wheezing no rhonchi no distress respiratory vines noticed Gastrointestinal: Mildly tender in left lower quadrant area positive bowel sounds no guarding no rebounds Back: There is no tenderness to palpation in the midline. There is no obvious deformity. Musculoskeletal: Normal ROM, no tenderness, There is no pedal edema. There is no calf tenderness or swelling. No cords were appreciated. Neurological: CN II-XII intact, Cranial nerves III through XII are intact. There are no obvious motor or sensory deficits. Coordination appears grossly intact. Speech is normal. Psychiatric: Cooperative, appropriate mood & affect, normal judgment. Limitations: no limitations Course Vital Signs 01/19/18 01/19/18 01/19/18 21:58 22:39 23:45 Temperature 102.8 F H 100.9 F H Pulse Rate 121 H 118 H 106 H Respiratory 18 16 16 Rate Blood Pressure 180/83 167/72 119/56 O2 Sat by Pulse 98 97 100 Oximetry White count is 16 compressive metabolic panel is unremarkable C-reactive protein is 24 urinalysis is quite significantly positive chest x-rays unremarkable CT abdomen showed some perinephric stranding but there was no obstruction radiologist feels this is not high low but I believe it is applied because urinalysis-positive had a fever chills and shakes and some tenderness on the left flank area and the left lower quadrant area, be admitted to Dr. Garcia service EKG Findings - EKG Comments: EKG Findings:: KG is a sinus tachycardia ventricular rate is 117 MA interval is 196 QRS duration is 120 QT/QTc is 312/435 review of this EKG reveals right bundle branch block does not reveal any ST elevation or ST depression Medical Decision Making - Lab Data Result diagrams: 01/19/18 22:24 01/19/18 22:24 Lab Results 01/19/18 01/19/18 01/19/18 Range/Units 22:24 22:24 22:24 WBC 16.0 H (3.8-10.6) k/uL RBC 5.16 (4.30-5.90) m/uL Hgb 14.7 (13.0-17.5) gm/dL Hct 43.7 (39.0-53.0) % MCV 84.7 (80.0-100.0) fL MCH 28.5 (25.0-35.0) pg MCHC 33.6 (31.0-37.0) g/dL RDW 13.8 (11.5-15.5) % Plt Count 218 (150-450) k/uL Neutrophils % 82 % Lymphocytes % 8 % Monocytes % 8 % Eosinophils % 1 % Basophils % 0 % Neutrophils # 13.1 H (1.3-7.7) k/uL Lymphocytes # 1.3 (1.0-4.8) k/uL Monocytes # 1.2 H (0-1.0) k/uL Eosinophils # 0.1 (0-0.7) k/uL Basophils # 0.0 (0-0.2) k/uL Sodium 142 (137-145) mmol/L Potassium 4.6 (3.5-5.1) mmol/L Chloride 108 H (98-107) mmol/L Carbon Dioxide 20 L (22-30) mmol/L Anion Gap 14 mmol/L BUN 23 H (9-20) mg/dL Creatinine 0.90 (0.66-1.25) mg/dL Est GFR (CKD-EPI)AfAm >90 (>60 ml/min/1.73 sqM) Est GFR (CKD-EPI)NonAf 82 (>60 ml/min/1.73 sqM) Glucose 156 H (74-99) mg/dL Plasma Lactic Acid Franklin 1.7 (0.7-2.0) mmol/L Calcium 9.6 (8.4-10.2) mg/dL Total Bilirubin 0.8 (0.2-1.3) mg/dL AST 28 (17-59) U/L ALT 29 (21-72) U/L Alkaline Phosphatase 76 (38-126) U/L C-Reactive Protein 23.6 H (<10.0) mg/L Total Protein 6.6 (6.3-8.2) g/dL Albumin 4.0 (3.5-5.0) g/dL Urine Color Urine Appearance (Clear) Urine pH (5.0-8.0) Ur Specific [place] (1.001-1.035) Urine Protein (Negative) Urine Glucose (UA) (Negative) Urine Ketones (Negative) Urine Blood (Negative) Urine Nitrite (Negative) Urine Bilirubin (Negative) Urine Urobilinogen (<2.0) mg/dL Ur Leukocyte Esterase (Negative) Urine RBC (0-5) /hpf Urine WBC (0-5) /hpf Urine WBC Clumps (None) /hpf Urine Bacteria (None) /hpf Hyaline Casts (0-2) /lpf Urine Mucus (None) /hpf 01/19/18 Range/Units 23:46 WBC (3.8-10.6) k/uL RBC (4.30-5.90) m/uL Hgb (13.0-17.5) gm/dL Hct (39.0-53.0) % MCV (80.0-100.0) fL MCH (25.0-35.0) pg MCHC (31.0-37.0) g/dL RDW (11.5-15.5) % Plt Count (150-450) k/uL Neutrophils % % Lymphocytes % % Monocytes % % Eosinophils % % Basophils % % Neutrophils # (1.3-7.7) k/uL Lymphocytes # (1.0-4.8) k/uL Monocytes # (0-1.0) k/uL Eosinophils # (0-0.7) k/uL Basophils # (0-0.2) k/uL Sodium (137-145) mmol/L Potassium (3.5-5.1) mmol/L Chloride (98-107) mmol/L Carbon Dioxide (22-30) mmol/L Anion Gap mmol/L BUN (9-20) mg/dL Creatinine (0.66-1.25) mg/dL Est GFR (CKD-EPI)AfAm (>60 ml/min/1.73 sqM) Est GFR (CKD-EPI)NonAf (>60 ml/min/1.73 sqM) Glucose (74-99) mg/dL Plasma Lactic Acid Franklin (0.7-2.0) mmol/L Calcium (8.4-10.2) mg/dL Total Bilirubin (0.2-1.3) mg/dL AST (17-59) U/L ALT (21-72) U/L Alkaline Phosphatase (38-126) U/L C-Reactive Protein (<10.0) mg/L Total Protein (6.3-8.2) g/dL Albumin (3.5-5.0) g/dL Urine Color Yellow Urine Appearance Cloudy (Clear) Urine pH 5.0 (5.0-8.0) Ur Specific [place] 1.024 (1.001-1.035) Urine Protein 1+ H (Negative) Urine Glucose (UA) Trace H (Negative) Urine Ketones Negative (Negative) Urine Blood Large H (Negative) Urine Nitrite Positive (Negative) Urine Bilirubin Negative (Negative) Urine Urobilinogen <2.0 (<2.0) mg/dL Ur Leukocyte Esterase Large H (Negative) Urine RBC 177 H (0-5) /hpf Urine WBC 120 H (0-5) /hpf Urine WBC Clumps Rare H (None) /hpf Urine Bacteria Rare H (None) /hpf Hyaline Casts 1 (0-2) /lpf Urine Mucus Rare H (None) /hpf Disposition Clinical Impression: Fever, Sepsis, Urinary tract infection, Tachycardia Disposition: ADMITTED IP TO THIS [facility] Condition: Good Referrals: Arturo Booth DO [Primary Care Provider] - 1-2 days
[2018-01-20] MEDS ORDERED: MORPHINE SULFATE 4 MG/ML SYRINGE IV PRN (00:40)
[2018-01-20] MEDS ORDERED: ACETAMINOPHEN TAB 325 MG TAB PO PRN (00:40)
[2018-01-20] MEDS ORDERED: NALOXONE 0.4 MG/ML 1 ML VIAL IV PRN (00:40)
[2018-01-20] MEDS ORDERED: PANTOPRAZOLE 40 MG TABLET PO PRN (00:44)
[2018-01-20] MEDS ORDERED: cefTRIAXone 2,000 MG in SODIUM CHLORIDE 0.9% 100 ML IVPB STA (00:45)
[2018-01-20 06:43] VITALS: RESP 16
[2018-01-20] MEDS: glipiZIDE 5 MG TAB PO SCH ×2 (07:50→21:26)
[2018-01-20] MEDS: METOPROLOL TARTRATE 25 MG TAB PO SCH ×2 (07:50→21:26)
[2018-01-20] MEDS: DOXYCYCLINE MONOHYDRATE 100 MG CAPSULE PO SCH ×2 (07:50→21:26)
[2018-01-20] MEDS: ASPIRIN 81 MG PO SCH (07:51)
[2018-01-20] MEDS ORDERED: LISINOPRIL 20 MG TAB PO SCH (09:00)
--- NOTE | 2018-01-20 09:24 | P.NPCON ---
History of Present Illness - Reason for Consult acute renal failure - History of Present Illness Reason for consultation: Abnormal CAT scan finding History of present illness: Patient is a 77-year-old male seen in renal consultation for abnormal CAT scan finding. Patient presented to the hospital with left lower quadrant abdominal pain which started yesterday afternoon. Patient states the pain was quite sharp and he was not even able to sit on a plastic chair. He subsequently came to the hospital for further care. He was noted to have a fever of 100.9F and was also noted to be tachycardic. He underwent CAT scan of the abdomen and pelvis with IV contrast which revealed mild bilateral perinephric fat stranding. No evidence of renal stones was noted. Patient denies use of NSAIDs. States he has been voiding. Denies hematuria but does admit to dysuria. Creatinine 0.9 at admission. He is currently maintained on normal saline at 100 mL an hour. He denies any personal or family history of kidney disease. Urinalysis was suggestive of UTI. He did receive IV Rocephin and is maintained on oral doxycycline. Overall his pain has improved since admission. Vital signs are stable. General: The patient appeared well nourished and normally developed. HEENT: Head exam is unremarkable. Neck is without jugular venous distension. LUNGS: Lungs are clear to auscultation and percussion. Breath sounds decreased. HEART: Rate and Rhythm are regular. First and second heart sounds normal. No murmurs, rubs or gallops. ABDOMEN: Abdominal exam reveals normal bowel sounds. Non-tender and non- distended. No evidence of peritonitis. EXTREMITITES: No clubbing, cyanosis, or edema. Past Medical History Past Medical History: Cancer, Diabetes Mellitus, GERD/Reflux, Hyperlipidemia, Hypertension, Myocardial Infarction ([place]), Prostate Disorder Additional Past Medical History / Comment(s): PROSTATE Last Myocardial Infarction Date:: 2000 History of Any Multi-Drug Resistant Organisms: None Reported Past Surgical History: Prostate Surgery Additional Past Surgical History / Comment(s): COLONOSCOPY, gall BLADDER OUT Past Anesthesia/Blood Transfusion Reactions: No Reported Reaction Past Psychological History: No Psychological Hx Reported Smoking Status: Former smoker Past Alcohol Use History: Occasional Additional Past Alcohol Use History / Comment(s): STARTED SMOKING AGE 14 QUIT 2000 SMOKED 1/2PPD Past Drug Use History: None Reported - Past Family History Father Family Medical History: Cancer Brother(s) Family Medical History: Cancer Additional Family Medical History / Comment(s): PROSTATE CANCER Medications and Allergies Home Medications Medication Instructions Recorded Confirmed Type Doxycycline Hyclate [Vibramycin] 100 mg PO BID 05/10/16 01/19/18 History Omeprazole 20 mg PO HS PRN 05/10/16 01/19/18 History Ramipril [Altace] 10 mg PO DAILY 05/10/16 01/19/18 History glipiZIDE [Glucotrol XL] 10 mg PO DAILY 05/10/16 01/19/18 History metFORMIN HCL [Glucophage] 500 mg PO QID 05/10/16 01/19/18 History Aspirin [Adult Low Dose Aspirin EC] 81 mg PO DAILY 05/11/16 01/19/18 History Metoprolol Tartrate [Lopressor] 25 mg PO BID 01/01/18 01/19/18 History Rosuvastatin Calcium 5 mg PO DAILY@1300 01/01/18 01/19/18 History Allergies Allergy/AdvReac Type Severity Reaction Status Date / Time No Known Allergies Allergy Verified 01/19/18 22:13 Physical Exam Vitals: Vital Signs Temp Pulse Pulse Resp BP BP Pulse Ox 01/20/18 05:20 98.4 F 86 16 161/72 96 01/20/18 01:23 99.1 F 93 18 106/57 01/19/18 23:45 100.9 F H 106 H 16 119/56 100 01/19/18 22:39 118 H 16 167/72 97 01/19/18 21:58 102.8 F H 121 H 18 180/83 98 Intake and Output 01/19/18 01/20/18 01/20/18 22:59 06:59 14:59 Intake Total 1099 Balance 1099 Intake: Intake, IV Titration 1099 Amount Sodium Chloride 0.9% 1, 999 000 ml @ 999 mls/hr IV . Q1H1M STA Rx#:[id number] cefTRIAXone 2,000 mg In 100 Sodium Chloride 0.9% 100 ml @ 100 mls/hr IVPB ONCE STA Rx#:[id number] Other: Voiding Method Toilet Toilet Weight 97.522 kg 97.522 kg Results - Lab Results Most recent lab results Calcium 9.6 mg/dL (8.4-10.2) 01/19/18 22:24 01/19/18 22:24 01/19/18 22:24 Assessment and Plan Plan: Assessment: 1. Mild bilateral perinephric fat stranding noted on CAT scan. This can be seen in pyelonephritis. No evidence of kidney stones. No evidence of hydronephrosis. His urinalysis is suggestive of UTI. 2. Benign hypertension. Controlled. 3. Sepsis with source likely being UTI/polynephritis. 4. Metabolic acidosis secondary to IV fluids. 5. Diabetes mellitus maintained on metformin. Plan: Continue normal saline at 100 mL an hour. Hold lisinopril if systolic blood pressure less than 120. Check urine culture. Maintain antibiotics - continue Rocephin. Repeat electrolytes in the morning. Thank you for the consultation. I will continue to follow the patient with you during his hospital stay.
[2018-01-20] MEDS: cefTRIAXone IN SWFI 2,000 MG/20 ML SYRINGE IVP SCH (10:24)
[2018-01-20 11:46] LABS: Glucose,Whole Blood 120 mg/dL (75-99)
[2018-01-20] MEDS ORDERED: ATORVASTATIN 10 MG TAB PO SCH (13:00)
[2018-01-20 17:29] LABS: Glucose,Whole Blood 81 mg/dL (75-99)
--- NOTE | 2018-01-20 18:39 | HP ---
HISTORY AND PHYSICAL CHIEF COMPLAINTS: Fever, shaking, chills and tachycardia. HISTORY OF PRESENT ILLNESS: This 77-year-old gentleman with a past medical history of hypertension, history of UTI, history of diabetes being followed by Dr. Booth in the outpatient setting, not feeling well was complaining of pain in the left lower quadrant area. The patient also woke up with pain about 2:00 pm. Patient also had shaking and chills this morning and the patient was taken to [facility] and was admitted for further evaluation and treatment. CT scan of the abdomen and pelvis was done which showed no evidence of mass, perinephric stranding was noted. There is no history of fever , rigors or chills. No history of headache, loss of consciousness, seizures at this time. PAST MEDICAL HISTORY: History of diabetes, GERD, hypertension, hyperlipidemia, myocardial infarction, prostate disorder. MEDICATIONS: Prior to admission include home medications are: 1. Aspirin 81 mg daily. 2. Glucophage 500 mg p.o. daily. 3. Glucotrol 10 mg p.o. daily. 4. 5 mg p.o. daily. 5. Altace 10 mg p.o. daily. 6. Omeprazole 20 mg q.h.s. 7. Lopressor 25 mg p.o. b.i.d. 8. Vibramycin 100 mg p.o. b.i.d. ALLERGIES: None. FAMILY HISTORY: History of prostate cancer in the family. SOCIAL HISTORY: Occasional alcohol. Previous history of smoking. REVIEW OF SYSTEMS: ENT: Diminished hearing and vision. CARDIOVASCULAR: No angina or palpitations. Respirations: No cough or hemoptysis. GI: As mentioned earlier. : As mentioned earlier. Nervous System as mentioned earlier. Allergy/ Immunology: No asthma or hayfever. MUSCULOSKELETAL: As mentioned earlier. HEMATOLOGY/ONCOLOGY: No history of anemia. Endocrine: Diabetes. Constitutional: As mentioned earlier. Dermatology: Negative. Rheumatology: Negative. Psychiatric : As mentioned earlier. PHYSICAL EXAMINATION: GENERAL: Alert, oriented times three. VITAL SIGNS: Pulse 99. Blood pressure 140/86. Respiratory rate 16, temperature 99.1, pulse ox 97% on room air. HEENT: Conjunctivae normal. Oral mucosa moist. NECK: No jugular venous distention. No carotid bruit. No lymph node enlargement. CARDIOVASCULAR: S1-S2 muffled. No S3, no S4. RESPIRATORY: Breath sounds diminished in the bases. Scattered rhonchi. No crackles. ABDOMEN: Soft, nontender. No mass palpable. LEGS: No edema and no swelling. NERVOUS SYSTEM: Higher functions as mentioned earlier. No focal deficits. LYMPHATICS: No lymph nodes palpable in the neck, axillae or groin. SKIN: No ulcer, rash or bleeding. LABS: WBC 16, sodium 142, potassium 4.6. UA noted. ASSESSMENT: 1. Fever, possibly urinary tract infection with sepsis with acute bilateral pyelonephritis. 2. Left lower quadrant abdominal pain, improved. 3. Increased WBC. 4. Diabetes type 2. 5. Gastroesophageal reflux disease. 6. History of benign prostatic hypertrophy. 7. Hypertension. 8. Hyperlipidemia. 9. History of myocardial infarction. 10.Remote history of nicotine dependence. RECOMMENDATIONS AND DISCUSSION: In this 77-year-old gentleman who presented with multiple complex medical issues , we will monitor the patient closely. Continue the current medications. Continue symptomatic treatment. We will initiate broad-spectrum IV antibiotics. I would also recommend cultures. Monitor closely. Monitor blood sugars closely. DVT prophylaxis. Resume the home medications. Repeat labs. Prognosis guarded because of multiple complex medical issues and further recommendations to follow. A copy of dictation being forwarded to Dr. Booth, who is the primary care physician. ANDREA / OLGAN: [id number] / MTDDestiny
[2018-01-20] MEDS: INSULIN ASPART 100 UNIT/ML 1 ML 10 ML VIAL SQ SCH ×2 (18:41→21:27)
[2018-01-20 21:20] LABS: Glucose,Whole Blood 173 mg/dL (75-99)
[2018-01-21 04:40] LABS: Hemoglobin A1C 6.3 % (4.0-6.0)
[2018-01-21 05:55] VITALS: TEMP 97.8
[2018-01-21 07:13] VITALS: BP 150/81; PULSE 80
[2018-01-21 07:13] LABS: Glucose,Whole Blood 88 mg/dL (75-99)
[2018-01-21] MEDS: INSULIN ASPART 100 UNIT/ML 1 ML 10 ML VIAL SQ SCH (07:20)
[2018-01-21] MEDS: METOPROLOL TARTRATE 25 MG TAB PO SCH (07:26)
[2018-01-21] MEDS: DOXYCYCLINE MONOHYDRATE 100 MG CAPSULE PO SCH (07:26)
[2018-01-21] MEDS: glipiZIDE 5 MG TAB PO SCH (07:26)
[2018-01-21] MEDS: ASPIRIN 81 MG PO SCH (07:26)
[2018-01-21] MEDS: cefTRIAXone IN SWFI 2,000 MG/20 ML SYRINGE IVP SCH (07:26)
[2018-01-21 07:52] LABS: Basophils % (A) 0 %; Eosinophils # (A) 0.3 k/uL (0-0.7); Eosinophils % (A) 3 %; HCT 42.5 % (39.0-53.0); HGB 13.9 gm/dL (13.0-17.5); Lymphocytes # (A) 2.4 k/uL (1.0-4.8); Lymphocytes % (A) 29 %; MCH 28.3 pg (25.0-35.0); MCHC 32.7 g/dL (31.0-37.0); MCV 86.4 fL (80.0-100.0); Mean Platelet Volume 7.6; Monocytes # (A) 0.5 k/uL (0-1.0); Monocytes % (A) 6 %; Neutrophils # (A) 4.8 k/uL (1.3-7.7); Neutrophils % (A) 58 %; Platelet Count 222 k/uL (150-450); RBC 4.91 m/uL (4.30-5.90); RDW 13.5 % (11.5-15.5); WBC 8.4 k/uL (3.8-10.6)
[2018-01-21 07:53] LABS: Anion Gap 13 mmol/L; Blood Urea Nitrogen 12 mg/dL (9-20); Calcium 8.8 mg/dL (8.4-10.2); Carbon Dioxide 23 mmol/L (22-30); Chloride 108 mmol/L (98-107); Glucose 90 mg/dL (74-99); Potassium 4.2 mmol/L (3.5-5.1); Sodium 144 mmol/L (137-145)
[2018-01-21] MEDS ORDERED: LISINOPRIL 20 MG TAB PO SCH (09:00)
[2018-01-21 11:00] LABS: Glucose,Whole Blood 193 mg/dL (75-99)
[2018-01-21] MEDS ORDERED: metFORMIN 500 MG TAB PO SCH (22:00)
--- NOTE | 2018-01-22 05:07 | DS ---
DISCHARGE SUMMARY DATE OF SERVICE: 01/21/2018. FINAL DIAGNOSES: 1. Fever, possible urinary tract infection with sepsis with acute bilateral pyelonephritis. 2. Left lower quadrant abdominal pain, improved. 3. Increased WBC, improved. 4. Diabetes type 2. 5. History of gastroesophageal reflux disease. 6. History of benign prostatic hypertrophy. 7. Hypertension. 8. Hyperlipidemia. 9. History of myocardial infarction. 10.Remote history of nicotine dependence. DISCHARGE DISPOSITION: The patient is being discharged in stable condition with guarded prognosis. HISTORY OF PRESENT ILLNESS: This 77 -year-old gentleman with past medical history of multiple medical problems, was admitted with fever and urinary tract infection with sepsis. The patient treated with broad-spectrum IV antibiotics and cultures have been negative so far. The patient improved significantly. On exam, vital signs stable. Cardio system: S1, S2. Abdomen: Soft. Central nervous system: No focal deficits. The patient is afebrile. CBC/BMP normal. DISCHARGE ADVICE AND MEDICATIONS: 1. Diet is cardiac diet. 2. Activity limited until followup. 3. Follow up with Dr. Booth in 2-3 days. 4. Final urine cultures to be followed at Dr. Booth' office. MEDICATIONS: 1. Tylenol 650 q.6h p.r.n. 2. Ecotrin 81 mg p.o. daily. 3. Ceftin 500 mg p.o. b.i.d. for 1 week. 4. Glucotrol 10 mg p.o. daily. 5. Glucophage 500 mg p.o. q.i.d. 6. Lopressor 25 mg p.o. b.i.d. 7. Multivitamins 1 p.o. daily. 8. Omeprazole 20 mg p.r.n. 9. Altace 10 mg daily. 10.Crestor 5 mg p.o. daily. Once again, the patient is being discharged in stable condition with guarded prognosis. MMODL / IJN: [id number] /
== END 2018-01-21 14:04 | disposition home or self-care (01) | DRG 872 ==
LOC: EC 21:51 → 5MS5E 01-20 00:36
PROVIDERS: ADMIT Hospitalist; ATTEND Hospitalist
DX: A41.9 Sepsis, unspecified organism (principal); E87.2 Acidosis; N17.9 Acute kidney failure, unspecified; N10 Acute pyelonephritis; E11.9 Type 2 diabetes mellitus without complications; E78.5 Hyperlipidemia, unspecified; I10 Essential (primary) hypertension; I25.2 Old myocardial infarction; K21.9 Gastro-esophageal reflux disease without esophagitis; N40.0 Benign prostatic hyperplasia without lower urinary tract symptoms; Z79.82 Long term (current) use of aspirin; Z80.42 Family history of malignant neoplasm of prostate; Z87.440 Personal history of urinary (tract) infections; Z87.891 Personal history of nicotine dependence; Z79.84 Long term (current) use of oral hypoglycemic drugs; Z79.899 Other long term (current) drug therapy; R10.32 Left lower quadrant pain
CPT/HCPCS: 36415; 71046; 74177; 80048; 80053; 81001; 83036; 83605; 85025; 86140; 87040; 87086; 93005; 96361; 96374; 99285

== ENCOUNTER → 2018-05-11 | Outpatient (CLI) | payer MEDICARE ==
[2018-05-11 09:01] LABS: C Reactive Protein 9.4 mg/L (<10.0)
== END | disposition home or self-care (01) ==
LOC: LABWHC1 07:57
PROVIDERS: ATTEND Psychiatry & Neurology Neurology
DX: E11.40 Type 2 diabetes mellitus with diabetic neuropathy, unspecified (principal); M79.1 Myalgia
CPT/HCPCS: 36415; 82550; 83036; 85652; 86140

== ENCOUNTER 2019-01-11 18:43 | Emergency (ER) | payer MEDICARE ==
[2019-01-11 18:53] VITALS: PULSE 90; TEMP 98.5
--- NOTE | 2019-01-11 19:37 | ED ---
General Adult HPI - General Chief complaint: Skin/Abscess/Foreign Body Stated complaint: poss foreign body in throat Time Seen by Provider: 01/11/19 19:00 Source: patient, RN notes reviewed Mode of arrival: ambulatory Limitations: no limitations - History of Present Illness Initial comments: This is a 78-year-old male presents emergency Department complaining he has a piece of steak stuck in his throat per patient states this is happened once before about a month going to sat around until moved down on its own. Patient states tonight he was eating steak and everything was building up any started coughing. Never had any difficulty breathing. Patient states there was a pressure sensation in the epigastric region that has subsided and he thinks immediately of passing out. Patient states he was coughing up any water he drank earlier so he will try drinking some water currently to see if it occurs. Patient denies any chest pain difficulty breathing shortest breath at any time. - Related Data Home Medications Medication Instructions Recorded Confirmed Omeprazole 20 mg PO HS PRN 05/10/16 01/11/19 Ramipril [Altace] 10 mg PO DAILY 05/10/16 01/11/19 metFORMIN HCL [Glucophage] 500 mg PO BID 05/10/16 01/11/19 Aspirin [Adult Low Dose Aspirin EC] 81 mg PO DAILY 05/11/16 01/11/19 Metoprolol Tartrate [Lopressor] 25 mg PO BID 01/01/18 01/11/19 Doxycycline Hyclate [Vibramycin] 100 mg PO DAILY 01/11/19 01/11/19 Linagliptin [Tradjenta] 5 mg PO DAILY 01/11/19 01/11/19 Allergies Allergy/AdvReac Type Severity Reaction Status Date / Time No Known Allergies Allergy Verified 01/11/19 19:34 Review of Systems ROS Statement: Those systems with pertinent positive or pertinent negative responses have been documented in the HPI. ROS Other: All systems not noted in ROS Statement are negative. Past Medical History Past Medical History: Cancer, Diabetes Mellitus, GERD/Reflux, Hyperlipidemia, Hypertension, Myocardial Infarction ([place]), Prostate Disorder Additional Past Medical History / Comment(s): PROSTATE Last Myocardial Infarction Date:: 2000 History of Any Multi-Drug Resistant Organisms: None Reported Past Surgical History: Prostate Surgery Additional Past Surgical History / Comment(s): COLONOSCOPY, gall BLADDER OUT Past Anesthesia/Blood Transfusion Reactions: No Reported Reaction Past Psychological History: No Psychological Hx Reported Smoking Status: Former smoker Past Alcohol Use History: Occasional Past Drug Use History: None Reported - Past Family History Father Family Medical History: Cancer Brother(s) Family Medical History: Cancer Additional Family Medical History / Comment(s): PROSTATE CANCER General Exam - General Exam Comments Initial Comments: GENERAL: Patient is well-developed and well-nourished. Patient is nontoxic and well- hydrated and is in no acute distress. ENT: Neck is soft and supple. Neck has full range of motion without eliciting any pain. EYES: The sclera were anicteric and conjunctiva were pink and moist. Extraocular movements were intact and pupils were equal round and reactive to light. Eyelids were unremarkable. PULMONARY: Unlabored respirations. Good breath sounds bilaterally. No audible rales rhonchi or wheezing was noted. CARDIOVASCULAR: There is a regular rate and rhythm without any murmurs gallops or rubs. ABDOMEN: Soft and nontender with normal bowel sounds. SKIN: Skin is clear with no lesions or rashes and otherwise unremarkable. NEUROLOGIC: Patient is alert and oriented x3. Cranial nerves II through XII are grossly intact. Normal speech for him and content MUSCULOSKELETAL: Normal extremities with adequate strength and full range of motion. PSYCHIATRIC: Normal psychiatric evaluation. Limitations: no limitations Course Vital Signs 01/11/19 18:50 Temperature 98.5 F Pulse Rate 90 Respiratory 18 Rate Blood Pressure 201/95 O2 Sat by Pulse 98 Oximetry Medical Decision Making - Medical Decision Making Patient was able to tolerate fluids as well as Jell-O in the emergency department with no problem. Patient states he has no discomfort whatsoever. Patient states a follow-up with Dr. Monique. Disposition Clinical Impression: Esophageal foreign body Disposition: HOME SELF-CARE Condition: Good Instructions (If sedation given, give patient instructions): Esophageal Foreign Body (ED) Is patient prescribed a controlled substance at d/c from ED?: No Referrals: Arturo Booth DO [Primary Care Provider] - 1-2 days Nidia Glover MD [STAFF PHYSICIAN] - 1-2 days Time of Disposition: 20:50
[2019-01-11 21:07] VITALS: BP 147/80; RESP 16
== END 2019-01-11 21:00 | disposition home or self-care (01) ==
LOC: EC 18:43
DX: T18.128A Food in esophagus causing other injury, initial encounter (principal); E11.9 Type 2 diabetes mellitus without complications; K21.9 Gastro-esophageal reflux disease without esophagitis; I10 Essential (primary) hypertension; I25.2 Old myocardial infarction; Z85.9 Personal history of malignant neoplasm, unspecified; Z87.891 Personal history of nicotine dependence; Z79.84 Long term (current) use of oral hypoglycemic drugs; Z79.82 Long term (current) use of aspirin; Z79.899 Other long term (current) drug therapy
CPT/HCPCS: 99283

== ENCOUNTER → 2019-05-25 | Outpatient (CLI) | payer MEDICARE ==
--- NOTE | 2019-05-25 11:49 | FL ---
EXAMINATION TYPE: FL barium swallow DATE OF EXAM: 05/25/2019 COMPARISON: None HISTORY: Dysphasia mainly with solids TECHNIQUE: A double air contrast UGI study is performed. FINDINGS: Images: 10 Fluoroscopy time: 43 seconds Esophagus dilates to normal caliber has normal contour to the gastroesophageal junction. Gastroesopha geal junction opens to normal caliber. There appears to be some persistence of the cricopharyngeus mu scle during this exam. Schatzki's ring is identified inferiorly. Small self reducing hiatal hernia may be present. A few wea k tertiary contractions were identified during the exam. There is complete stripping of esophageal brady gold the horizontal drinking position. IMPRESSIONS: 1. Persistence of the cricopharyngeus muscle during this exam. 2. Mild presbyesophagus.
== END | disposition home or self-care (01) ==
LOC: RADUSWWP 10:32
PROVIDERS: ATTEND Family Medicine
DX: K22.8 Other specified diseases of esophagus (principal)
CPT/HCPCS: 74220

== ENCOUNTER 2019-06-15 07:42 | Day surgery (SDC) | payer MEDICARE ==
[2019-06-13 11:11] VITALS: BMI 28.4
[~2019-06-15 07:42] MED LIST: LACTATED RINGERS 1,000 ML IV SCH; LIDOCAINE 1% 20 ML VIAL (10MG/ML) FOR IV START INTRADERMA PRN
[2019-06-15 08:28] VITALS: TEMP 96.9
[2019-06-15] MEDS ORDERED: METOPROLOL TARTRATE 5 MG/5 ML VIAL IVP ONE (08:29)
[2019-06-15 08:33] LABS: Glucose,Whole Blood 141 mg/dL (75-99)
[2019-06-15] MEDS ORDERED: PROPOFOL 10 MG/ML 20 ML VIAL IV ONE (08:41)
[2019-06-15] MEDS ORDERED: LABETALOL 5 MG/ML VIAL MDV ONE (08:41)
[2019-06-15] MEDS ORDERED: LIDOCAINE 1% INJ 10MG/ML (20 ML MDV) ONE (08:41)
--- NOTE | 2019-06-15 08:57 | P.PCN ---
Date of Procedure: 06/15/19 Procedure(s) Performed: BRIEF HISTORY: Patient is a 79-year-old, pleasant, white male, scheduled for an upper endoscopy as a part of evaluation of intermittent dysphagia to solids especially with meat for the last several months duration. He denies any heartburn.. PROCEDURE PERFORMED: Esophagogastroduodenoscopy with biopsy and dilation. PREOPERATIVE DIAGNOSIS: Intermittent dysphagia to solids of 6 months duration. IV sedation per anesthesia. PROCEDURE: After informed consent was obtained, the patient was brought into the endoscopy unit. IV sedation was administered by Anesthesia under continuous monitoring. Initially the Olympus GIF-140 video endoscope was inserted into the mouth. Esophagus intubated without any difficulty. It was gradually advanced into the stomach and duodenum and carefully examined. The bulb and the second part of the duodenum appeared normal. The scope at this time was withdrawn to the stomach, adequately insufflated with air, and upon careful examination, mucosa of the antrum, body, cardia and the fundus appeared normal. The scope was then withdrawn into the esophagus. The GE junction was located at 39 cm from the incisors. There was a small sliding Hiatal hernia noted. There was a distal esophageal Schatzki's ring identified that was dilated using 15-18 mm TTS balloon for total of 90 seconds and a sequential fashion. Following this there was some oozing identified at the site of dilation. The rest of the esophagus appeared normal. There were no erosions or ulcerations seen, biopsies were done from the distal esophagus and the patient tolerated the procedure well. IMPRESSION: 1. Distal esophageal Schatzki's ring status post balloon dilation using 15-18 mm TTS balloon as described above. 2. Small sliding Hiatal hernia. RECOMMENDATIONS: The findings of this examination were discussed with the patient as well as a family. He will remain on a clear liquid diet. He'll be started on Prilosec 20 mg daily. He'll be seen in office in 6 weeks..
[2019-06-15 08:59] VITALS: RESP 14
[2019-06-15 09:49] VITALS: BP 165/90; PULSE 72
[2019-06-15 10:21] LABS: Glucose,Whole Blood 152 mg/dL (75-99)
== END 2019-06-15 10:14 | disposition home or self-care (01) ==
LOC: ORWHC2ENDO 07:42
PROVIDERS: ATTEND Internal Medicine Gastroenterology
DX: K22.2 Esophageal obstruction (principal); K44.9 Diaphragmatic hernia without obstruction or gangrene; I25.10 Atherosclerotic heart disease of native coronary artery without angina pectoris; K21.9 Gastro-esophageal reflux disease without esophagitis; I10 Essential (primary) hypertension; E11.9 Type 2 diabetes mellitus without complications; I25.2 Old myocardial infarction; Z85.46 Personal history of malignant neoplasm of prostate; Z86.73 Personal history of transient ischemic attack (TIA), and cerebral infarction without residual deficits; Z87.891 Personal history of nicotine dependence; Z79.84 Long term (current) use of oral hypoglycemic drugs; Z79.82 Long term (current) use of aspirin; Z79.899 Other long term (current) drug therapy
CPT/HCPCS: 88305; 43239; 43249; J2001; J2704; C1726

== ENCOUNTER → 2020-06-04 | Outpatient (CLI) | payer MEDICARE ==
--- NOTE | 2020-06-04 16:20 | CT ---
EXAMINATION TYPE: CT brain wo con DATE OF EXAM: 06/04/2020 COMPARISON: Prior CT brain 01/01/2018 HISTORY: confusion and dizziness, altered mental status and disorientation, R 41.0 CT DLP: 1081 mGycm Automated exposure control for dose reduction was used. Helical imaging through the brain. FINDINGS: There is no significant interval change. There is no hemorrhage or hydrocephalus. Age-related atrophy is likely present. Periventricular white matter shows patchy low attenuation. Calvarium is intact. P aranasal sinuses and mastoid air cells are remarkable for mucus retention cyst or polyp within the le ft maxillary sinus measuring 13 mm. There are cerebral vascular calcifications. Cerumen present withi n the external auditory canals IMPRESSION: AGE-RELATED CHANGES OF ATROPHY AND PROBABLE CHRONIC SMALL VESSEL ISCHEMIA. CONSIDER MRI INDICATED.
== END | disposition home or self-care (01) ==
LOC: RADCTMAIN 15:47
PROVIDERS: ATTEND Family Medicine
DX: G31.1 Senile degeneration of brain, not elsewhere classified (principal)
CPT/HCPCS: 70450

== ENCOUNTER → 2020-07-30 | Outpatient (CLI) | payer MEDICARE ==
--- NOTE | 2020-07-30 19:49 | CONS ---
CONSULTATION DATE OF SERVICE: 07/30/2020 This 80-year-old gentleman has been evaluated in the sleep center for possible obstructive sleep apnea-hypopnea syndrome. HISTORY OF PRESENT ILLNESS: Sleep wake evaluation: Patient's usual sleep schedule from 8 - 9 p.m. until 5-6:00 am. Sometimes he has problems with falling asleep. He has TV set in bedroom, falling asleep in front of the TV. He sleeps in different positions including back, side and on the chair. According to his , he snores and he wakes up from sleep 2 times with one episode of nocturia. He also grinds his teeth, has episodes of dry mouth, episodes of gasping for air, and he has observed episodes of stopped breathing during sleep. During the day, patient falling asleep. Has problems with claustrophobia. [place] Sleepiness Scale is 7. PAST MEDICAL HISTORY: Positive for cardiac arrhythmia, diabetes, acid reflux, hypertension, prostate cancer, history of UTI, history of pneumonia. MEDICATIONS: Repaglinide twice a day, metformin 500 mg twice a day, metoprolol 25 mg twice a day, ramipril once a day, Eliquis 5 mg twice a day, omeprazole 20 mg once a day, aspirin 81 mg once a day, B12 supplement once a day. REVIEW OF SYSTEMS: Awakenings from sleep, sleepiness during the day, some memory problems. PAST SURGICAL HISTORY: Permanent pacemaker insertion, prostatectomy for prostate CA. FAMILY HISTORY: Diabetes, cancer, heart problems. SOCIAL HISTORY: Positive history of smoking for about 64 pack years, quit about 30 years ago. Alcohol consumption none. PHYSICAL EXAMINATION: GENERAL: A male without any distress. VITAL SIGNS: BP 136/65 , HR70 , RR15, height 5' 7 1/2", weight 201 , BMI 31.0, temperature 97.0, oxygen saturation at room air 100%. HEENT: PERRLA, EOMI, evaluation of oropharynx showed extremely low position of soft palate, Mallampati IV. NECK: Neck is 17 1/2 inches in circumference. Supple, no JVD. Thyroid is not palpable. LUNGS: Clear to percussion and to auscultation. Good air exchange. No wheezing or rhonchi. HEART: S1, S2 regular. No murmurs, gallops, or rubs. ABDOMEN: Soft and nontender. Bowel sounds are present. No organomegaly appreciated. EXTREMITIES: No clubbing or cyanosis. RUNNING RIGGER: Awake, alert, and oriented X3. Cranial nerves 2 to 7 intact. There is no fasciculation or atrophy. noted. No focal deficits observed. IMPRESSION: 1. Snoring, witnessed episodes of stopped breathing during the sleep, extremely low position of soft palate, Mallampati IV, wide neck, sleepiness during the day, obstructive sleep apnea-hypopnea syndrome. 2. Obesity. BMI 31.0. 3. History of cardiac arrhythmia with bradycardia status post permanent pacemaker insertion. 4. Memory problems. Recently was diagnosed with mild case of dementia. 5. History of prostate carcinoma, status post prostatectomy. 6. Acid reflux. 7. History of urinary tract infection in the past. 8. History of pneumonia in the past. 9. History of 64 pack year smoking, quit many years ago. PLAN: 1. Polysomnography for evaluation of patient's breathing during sleep. 2. CPAP/BiPAP titration if sleep study confirms obstructive sleep apnea-hypopnea syndrome. 3. Preferable position during sleep on the side. 4. No driving if patient feels any sleepiness. 5. I will see patient for follow up visit to explain results of testing and following plan. Thank you very much for allowing me to participate in management of your patient. Sincerely, Ramon Vieira MD, PhD, FAASM Diplomat of [place] [employer] [place] [employer] Taxation Agent of [facility] MMODL / OLGAN: [id number] /
== END | disposition home or self-care (01) ==
LOC: SLEEP 14:07
PROVIDERS: ATTEND Internal Medicine
DX: G47.33 Obstructive sleep apnea (adult) (pediatric) (principal); E66.9 Obesity, unspecified; F03.90 Unspecified dementia, unspecified severity, without behavioral disturbance, psychotic disturbance, mood disturbance, and anxiety; K21.9 Gastro-esophageal reflux disease without esophagitis; Z85.46 Personal history of malignant neoplasm of prostate; Z68.31 Body mass index [BMI] 31.0-31.9, adult; Z86.2 Personal history of diseases of the blood and blood-forming organs and certain disorders involving the immune mechanism; Z87.440 Personal history of urinary (tract) infections; Z87.01 Personal history of pneumonia (recurrent); Z79.891 Long term (current) use of opiate analgesic; Z79.84 Long term (current) use of oral hypoglycemic drugs; Z79.899 Other long term (current) drug therapy; Z79.01 Long term (current) use of anticoagulants; Z99.89 Dependence on other enabling machines and devices
CPT/HCPCS: 99211